=== PATIENT | male | born 1940 | race Caucasian/White ===

== ENCOUNTER 2024-06-11 05:39 | Emergency (ER) | payer MEDICARE, SELFPAY ==
--- NOTE | ~2024-06-11 | CT_ITS ---
EXAMINATION: CT cervical spine wo con DATE: 06/11/2024 06:14 INDICATION: Neck injury. Fall. TECHNIQUE: Computed tomography (CT) of the cervical spine was performed without intravenous contrast. Automated exposure control and iterative reconstruction technique were employed. The dose-length pro duct was 729.31 mGy-cm. COMPARISON: None FINDINGS: There is 2 mm retrolisthesis of C5 on C6. Vertebral body heights are normal. There is inter body fusion at C3-C4. There is mildly decreased disc height at C4-C5 and severely decreased disc heig ht at C5-C6 and C6-C7. The following disc levels are specifically discussed: C2-C3: There is mild right and severe left uncovertebral joint osteoarthritis. There is moderate righ t and severe left facet joint osteoarthritis. There is mild left neural foraminal stenosis. There is no central canal stenosis. C3-C4: There is mild right and severe left uncovertebral joint hypertrophy. There is ankylosis of the facet joints with mild right and severe left hypertrophy. There is mild right and moderate left neur al foraminal stenosis. There is mild central canal stenosis. C4-C5: There is moderate bilateral uncovertebral joint osteoarthritis. There is severe bilateral face t joint osteoarthritis. There is mild right and moderate left neural foraminal stenosis. There is mil d central canal stenosis. C5-C6: There is severe bilateral uncovertebral joint osteoarthritis. There is severe bilateral facet joint osteoarthritis. There is moderate bilateral neural foraminal stenosis. There is mild central ca nal stenosis. C6-C7: There is severe right and moderate left uncovertebral joint osteoarthritis. There is severe bi lateral facet joint osteoarthritis. There is mild bilateral neural foraminal stenosis. There is mild central canal stenosis. C7-T1: There is no uncovertebral joint osteoarthritis. There is severe bilateral facet joint osteoart hritis. There is mild bilateral neural foraminal stenosis. There is no central canal stenosis. IMPRESSION: 1. No fracture. 2. Severe cervical spondylosis. Reviewed, dictated and finalized at location A. AGRAPH OPERATOR
--- NOTE | ~2024-06-11 | CT_ITS ---
EXAMINATION: CT brain wo con DATE: 06/11/2024 06:13 INDICATION: Head injury. Fall. TECHNIQUE: Computed tomography (CT) of the head was performed without intravenous contrast. The mA wa s adjusted according to patient size. Iterative reconstruction technique was employed. The dose-lengt h product was 756.67 mGy-cm. COMPARISON: Head CT 06/10/2024 FINDINGS: There are scattered areas of low attenuation in the cerebral white matter, which is within normal limits for the patient's age. There is no intracranial hemorrhage, acute infarction, or abnorm al intracranial mass lesion. The ventricles are normal in size. There is mucosal thickening in the pa ranasal sinuses. The orbits are normal. The mastoid air cells are normal. IMPRESSION: 1. Normal aging brain. Reviewed, dictated and finalized at location A. RUCTIONAL COACH IMPRESSION: 1. Normal aging brain.
[2024-06-11 05:37] VITALS: BP 154/74; PULSE 77; RESP 14; TEMP 36.2; O2SAT 95
--- NOTE | 2024-06-11 05:53 | ED.GENADULT ---
HPI - General Adult General Chief complaint: Fall Stated complaint: fall Time Seen by Provider: 06/11/24 05:54 History of Present Illness HPI narrative: Patient is a 83-year-old gentleman who presents emergency department with chief complaint of possible fall the patient was found laying on the floor without complaints the staff is unsure if he has had a full or was injured or not the patient was seen earlier in our facility for increased agitation was screened at that time and did receive a dose of Ativan the patient currently has no complaints but is unreliable on history due to advanced dementia Related Data Allergies Allergy/AdvReac Type Severity Reaction Status Date / Time ciprofloxacin Allergy Unknown Unknown Verified 06/10/24 19:10 clindamycin Allergy Unknown Unknown Verified 06/10/24 19:10 levofloxacin Allergy Unknown Unknown Verified 06/10/24 19:10 Penicillins Allergy Unknown Unknown Verified 06/10/24 19:10 shellfish derived Allergy Unknown Unknown Verified 06/10/24 19:10 Review of Systems Review of Systems: A 10 system review of systems was completed on the patient and is negative except for what is stated in the HPI. Nursing and ancillary documentation was reviewed. Exam Narrative: GENERAL: Well-appearing, well-nourished, and in no acute distress. HEAD: Normocephalic, atraumatic. EYES: PERRLA and EOMI. ENT: Nares clear, no rhinorrhea or epistaxis. Mucous membranes moist. NECK: Supple. CHEST: Clear to auscultation. No respiratory distress. HEART: Regular rate and rhythm. No murmur heard. Normal peripheral pulses. ABDOMEN: Soft, nontender, nondistended, normal active bowel sounds. EXTREMITIES: Normal range of motion. No edema. SKIN: Warm, dry, no rash. NEURO: No focal deficits. Alert and pleasantly confused. PSYCH: Normal mood and affect. Course Vital Signs Vital signs: Vital Signs Temperature 36.2 C L 06/11/24 05:37 Pulse Rate 77 06/11/24 05:37 Respiratory Rate 14 06/11/24 05:37 Blood Pressure 154/74 H 06/11/24 05:37 Pulse Oximetry 95 06/11/24 05:37 Oxygen Delivery Room Air 06/11/24 05:37 Temperature 36.2 C L 06/11/24 05:37 Pulse Rate 77 06/11/24 05:37 Respiratory Rate 14 06/11/24 05:37 Blood Pressure 154/74 H 06/11/24 05:37 Pulse Oximetry 95 06/11/24 05:37 Oxygen Delivery Room Air 06/11/24 05:37 Medical Decision Making MDM Narrative Medical decision making narrative: Differential diagnosis includes ground level fall, head injury, cervical spine fracture Patient is currently alert to his baseline status the patient is not complaining of anything a CT head CT C-spine will be obtained CT head CT C-spine showed no acute abnormality Vital Signs Vital Signs: Vital Signs Temperature 36.2 C L 06/11/24 05:37 Pulse Rate 77 06/11/24 05:37 Respiratory Rate 14 06/11/24 05:37 Blood Pressure 154/74 H 06/11/24 05:37 Pulse Oximetry 95 06/11/24 05:37 Oxygen Delivery Room Air 06/11/24 05:37 Temperature 36.2 C L 06/11/24 05:37 Pulse Rate 77 06/11/24 05:37 Respiratory Rate 14 06/11/24 05:37 Blood Pressure 154/74 H 06/11/24 05:37 Pulse Oximetry 95 06/11/24 05:37 Oxygen Delivery Room Air 06/11/24 05:37 Discharge Plan Discharge Clinical Impression: Dementia, Ground-level fall Patient Disposition: NH Nursing Home/Asst Living Condition: Stable Instructions: Antibiotic Form, Dementia (ED), Fall Prevention (ED) Additional Instructions: There were no signs of injury from the fall. CT head and CT C-spine were negative Patient Language: [place] Follow-up/Referrals: Tracey,Emily Doan APRN [Primary Care Provider] - Time of Disposition: 06:42
[2024-06-11 07:18] VITALS: BP 136/69; PULSE 63; RESP 12; O2SAT 96
[2024-06-11 07:46] VITALS: BP 134/74; PULSE 74; RESP 12; TEMP 36.6; O2SAT 95
--- NOTE | 2024-06-11 08:45 | PC.NURSE ---
Attempted to call report to [facility], received no answer
--- NOTE | 2024-06-11 09:15 | PC.NURSE ---
Attempted to call report to [facility], received no answer
[2024-06-11 11:25] VITALS: BP 126/83; PULSE 72; RESP 15; O2SAT 98
--- NOTE | 2024-06-11 11:38 | PC.NURSE ---
RN attempted to get pt on bedpan. Pt refusing and attempting to get out of bed. RN attempted to redirect pt and educate pt unsuccessfully. Pt already on bed alarm and now has sitter at bedside
--- NOTE | 2024-06-11 12:43 | PC.NURSE ---
Report given to Rere AMES at [facility], all questions answered
== END 2024-06-11 14:22 ==
PROVIDERS: Emergency Provider Emergency Medicine; PCP Nurse Practitioner
DX: Z04.3 Encounter for examination and observation following other accident (principal); F03.90 Unspecified dementia, unspecified severity, without behavioral disturbance, psychotic disturbance, mood disturbance, and anxiety; M47.812 Spondylosis without myelopathy or radiculopathy, cervical region; W19.XXXA Unspecified fall, initial encounter
CPT/HCPCS: 70450; 72125; 99284

== ENCOUNTER 2024-07-22 15:26 | Emergency (ER) | payer MEDICARE, SELFPAY ==
--- NOTE | ~2024-07-22 | XR_ITS ---
EXAMINATION: XR chest 2V DATE: 07/22/2024 17:43 INDICATION: Fall. TECHNIQUE: Frontal and lateral views of the chest were obtained. COMPARISON: Chest 2 view 06/10/2024 FINDINGS: There is no pneumonia, pleural effusion, or pneumothorax. The heart size is normal. IMPRESSION: 1. No acute cardiopulmonary disease. Reviewed, dictated and finalized at location A. ING HEAD TENDER
--- NOTE | ~2024-07-22 | XR_ITS ---
EXAMINATION: XR pelvis 1-2V DATE: 07/22/2024 17:43 INDICATION: Fall. TECHNIQUE: An anteroposterior view of the pelvis was obtained. COMPARISON: None. FINDINGS: Alignment is normal. No fracture. There is mild osteoarthritis of the hips. There is at sev ere lumbar spondylosis. IMPRESSION: 1. Mild osteoarthritis of the hips. Reviewed, dictated and finalized at location A. GE WORKER
--- NOTE | ~2024-07-22 | CT_ITS ---
EXAMINATION: CT cervical spine wo con DATE: 07/22/2024 17:52 INDICATION: Head injury. TECHNIQUE: Computed tomography (CT) of the cervical spine was performed without intravenous contrast. Automated exposure control and iterative reconstruction technique were employed. The dose-length pro duct was 352.57 mGy-cm. COMPARISON: CT cervical spine 06/11/24 FINDINGS: There is 2 mm retrolisthesis of C5 on C6. Vertebral body heights are normal. There is inter body fusion at C3-C4. There is mildly decreased disc height at C4-C5 and severely decreased disc heig ht at C5-C6 and C6-C7. The following disc levels are specifically discussed: C2-C3: There is mild right and severe left uncovertebral joint osteoarthritis. There is moderate righ t and severe left facet joint osteoarthritis. There is mild left neural foraminal stenosis. There is no central canal stenosis. C3-C4: There is mild right and severe left uncovertebral joint hypertrophy. There is ankylosis of the facet joints with mild right and severe left hypertrophy. There is mild right and moderate left neur al foraminal stenosis. There is mild central canal stenosis. C4-C5: There is moderate bilateral uncovertebral joint osteoarthritis. There is severe bilateral face t joint osteoarthritis. There is mild right and moderate left neural foraminal stenosis. There is mil d central canal stenosis. C5-C6: There is severe bilateral uncovertebral joint osteoarthritis. There is severe bilateral facet joint osteoarthritis. There is moderate bilateral neural foraminal stenosis. There is mild central ca nal stenosis. C6-C7: There is severe right and moderate left uncovertebral joint osteoarthritis. There is severe bi lateral facet joint osteoarthritis. There is mild bilateral neural foraminal stenosis. There is mild central canal stenosis. C7-T1: There is no uncovertebral joint osteoarthritis. There is severe bilateral facet joint osteoart hritis. There is mild bilateral neural foraminal stenosis. There is no central canal stenosis. IMPRESSION: 1. No fracture. 2. Severe cervical spondylosis. Reviewed, dictated and finalized at location A. LIBRARY CLERK
--- NOTE | ~2024-07-22 | CT_ITS ---
EXAMINATION: CT brain wo con DATE: 07/22/2024 17:52 INDICATION: Head injury. TECHNIQUE: Computed tomography (CT) of the head was performed without intravenous contrast. The mA wa s adjusted according to patient size. Iterative reconstruction technique was employed. The dose-lengt h product was 681.00 mGy-cm. COMPARISON: Head CT 06/11/2024 FINDINGS: There are scattered areas of low attenuation in the cerebral white matter, which is within normal limits for the patient's age. There is no intracranial hemorrhage, acute infarction, or abnorm al intracranial mass lesion. The ventricles are normal in size. There is mild mucosal thickening in t he paranasal sinuses. The orbits are normal. The mastoid air cells are normal. IMPRESSION: 1. Normal aging brain. Reviewed, dictated and finalized at location A. LAY MANAGER IMPRESSION: 1. Normal aging brain.
[2024-07-22 15:30] VITALS: BP 135/64; PULSE 52; RESP 18; TEMP 36.4; O2SAT 96
--- OUTSIDE RECORDS SUMMARY | 2024-07-22 15:30 | XMS_ITS ---
Author Organization Corporate Office Address [address] [place] [address] [address] [place] [address] Care Team Providers Care Academic Physician Name Role Phone Ramesh Harper Primary Care Provider Anca Denson MD, [facility] [phone] REASON FOR VISIT 6 mo ear cleaning Encounters Encounter Location Date Provider Diagnosis [address] [facility] [address] [place] [address] 10/09/2023 Reuben Denson Plan Of Treatment No Information Progress Notes * Jose Armando DICKSONDOB: 2 (83 yo M)Acc No.[id number]:10/09/2023 Progress Notes Patient: Jose Armando FIGUEROA Provider: Taiwo Denson MD Case Label: Date Of Injury: :1940 A ge:82 Y S ex:Male Date:10/09/2023 Address:[address] [place], [place] [address] Pcp:Ramesh Harper Subjective: * Chief Complaints: * 1 . 6 mo ear cleaning. * Medical History: Objective: * Vitals: Assessment: Plan: * Treatment: * Care Plan Details* * Electronic signature of Reuben Denson MD, MD on 07/22/2024 at 04:30 PM EST Sign off status: Pending * Provider: Taiwo Denson MD Date: 0 10/09/2023 Generated for Claudia allen/Awilda/eTransmitting on: 0 07/22/2024 04:30 PM EST
--- OUTSIDE RECORDS SUMMARY | 2024-07-22 15:30 | XMS_ITS ---
Author Organization Corporate Office Address [address] [place] [address] [address] [place] [address] Care Team Providers Care Instrument And Control Technician Name Role Phone Ramesh Harper Primary Care Provider Anca Denson MD, [facility] [phone] REASON FOR VISIT check hearing and needs new hearing aids Encounters Encounter Location Date Provider Diagnosis 06 [facility] [address] [place] [address] 07/03/2023 Reuben Denson Plan Of Treatment No Information Progress Notes * Jose Armando DICKSONDOB: 2 (83 yo M)Acc No.[id number]:07/03/2023 Progress Notes Patient: Jose Armando FIGUEROA Provider: Taiwo Denson MD Case Label: Date Of Injury: :1940 A ge:82 Y S ex:Male Date:07/03/2023 Address:[address] [place], [place] [address] Pcp:Ramesh Harper Subjective: * Chief Complaints: * 1 . Check hearing and needs new hearing aids. * Medical History: Objective: * Vitals: Assessment: Plan: * Treatment: * Care Plan Details* * Electronic signature of Reuben Denson MD, MD on 07/22/2024 at 04:30 PM EST Sign off status: Pending * Provider: Taiwo Denson MD Date: 07/03/2023 Generated for Jelanii ng/Faerong/eTransmitting on: 07/22/2024 04:30 PM EST
--- OUTSIDE RECORDS SUMMARY | 2024-07-22 15:30 | XMS_ITS ---
Author Organization Corporate Office Address [address] [place] [address] [address] [place] [address] Care Team Providers Care Fixed Route Operator Name Role Phone Ramesh Harper Primary Care Provider Anca Denson MD, [facility] [phone] REASON FOR VISIT FYI Encounters Encounter Location Date Provider Diagnosis [facility] [address] [place] [address] 024 Reuben Denson Plan Of Treatment No Information Progress Notes * Jose Armando DICKSONDOB: 2 (82 yo M)Acc No.[id number]:08/26/2023 Patient: Jose Armando FIGUEROA :1940 A ge:82 Y S ex:Male Address:[address] [place] [address], [address] * true * Date: Generated for Printi ng/Faxing/eTransmitting on: 0 07/22/2024 04:30 PM EST
--- OUTSIDE RECORDS SUMMARY | 2024-07-22 15:30 | XMS_ITS | Patient Health Record ---
Author Organization Corporate Office Address [address] [place] [address] [address] [place] [address] Care Team Providers Care Industrial Controls Technician Name Role Phone Ramesh Harper Primary Care Provider Anca Denson MD, [place] Unavailable [phone] Allergies Allergen (clinical drug ingredient) Drug/Non Drug Allergy documented on EMR Reaction Allergy Type Onset Date Status clindamycin Clindamycin HCl rash Drug Allergy Active Shellfish (FN) Shellfish-derived Products hives Drug Allergy Active Reason For Referral No Information Medications Medication SIG (Take, Route, Frequency, Duration) Notes Start Date End Date Status [place] 3 1000 MG 1 capsule Orally Onc e a day Active Multivitamin Adult - Orally Active Simvastatin 20 MG 1 tablet in the even ing Orally Once a day Active PreserVision AREDS - Orally Active Vitamin D3 15670 UNIT Orally Active Fish Oil 1000 MG 1 capsule Orally Onc e a day Active amLODIPine Besylate 10 MG 1 tablet Orall y Once a day Active Levothyroxine Sodium 50 MCG 1 tablet on an empty stomach in the morning Orally Once a day Active Fluticasone Propionate 50 MCG/ACT 1 spray in each nostril Nasally Once a day for 90 days Active Losartan Potassium 100 MG 1 tablet Orall y Once a day Active Social History Tobacco Use: Social History Observation Description Date Details (start date - stop date) Never Smoker NA - NA Smoking Question Answer Notes Are you a: Never Smoker Problems Problem Type SNOMED Code ICD Code Onset Dates Problem Status W/U Status Risk Notes Problem 04903003 Impacted cerumen of right ear (H61.21) Active confirmed Problem 9638124960722 Tinnitus of both ears (H93.13) Active confirmed Problem 9198650053130 Tinnitus, bilateral (H93.13) Active confirmed Problem 294554979 Cerumen debris o n tympanic membrane of both ears (H61.23) Active confirmed Problem 217392778 Cerumen debris o n tympanic membrane of right ear (H61.21) Active confirmed Problem 818108737 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) Active confirmed Encounters Encounter Location Date Provider Diagnosis [facility] [address] [place] [address] 024 eRuben Denson Plan Of Treatment No Information Insurance Providers Payer Name Payer Address Payer Phone Subscriber Number Group Number Insured Name Patient Relationship to Insured Coverage Start Date Coverage End Date [employer] MEDICARE PPO [address] [place] [address] [id number] [id number] Jose Armando Casillas Self - patient is the insured Medical (General) History Medical History History ICD Code Hypertension Thyroid disease Sensorineural hearing loss (SNHL) of bot h ears Tinnitus Surgical History Surgery Date(Month/Year) back surgery - spinal stenosis
--- OUTSIDE RECORDS SUMMARY | 2024-07-22 15:30 | XMS_ITS | Patient Health Record ---
Author Organization [facility] Vince crowe Billing Info Address [address] [place] [address] Care Team Providers Care Grinder Tender Name Role Phone YOMAIRA Echavarria Unavailable [phone] Allergies Allergen (clinical drug ingredient) Drug/Non Drug Allergy documented on EMR Reaction Allergy Type Onset Date Status Phenylbutazone Unknown Drug Allergy Ac tive Penicillin Unknown Drug Allergy Active Reason For Referral No Information Medications Medication SIG (Take, Route, Frequency, Duration) Notes Start Date End Date Status Aspirin 81 MG 1 tablet Orally Once a day for 30 day(s) Active Simvastatin 40 MG 1/2 tablet in the evening Orally Once a day for 30 day(s) Active Nitroglycerin Sublingual 0.4 mg 1 under tongue for chest pain every 5 minutes up to 3 times 08/26/2012 Active Losartan Potassium 50 MG 1/2 tablet Oral ly Once a day for 90 days Active CoQ10 Active Levothyroxine Sodium 100 MCG 1 tablet on an empty stomach in the morning Orally Once a day for 90 day(s) 08/26/2012 Active Fish Oil 1000 MG 1 capsule Orally Onc e a day for 30 day(s) Active PreserVision AREDS as directed Orally Active Problems Problem Type SNOMED Code ICD Code Onset Dates Problem Status W/U Status Risk Notes Problem 54004858 Unspecified hypothyroidism (244.9) Active confirmed Migra odette-Pro blemList-[facility]07/28/19 13 Problem 719936211 Pure hypercholesterolemia (272.0) Active confirmed Migrated-Pro blemList-344 [facility]07/28/19 13 Problem 80771953 Other and unspec ified hyperlipidemia (272.4) Active confirmed Migra odette-Pro blemList-344 [facility]07/28/19 13 Problem 55028830 Unspecified esse ntial hypertension (401.9) Active confirmed Migrate d-Pro blemList-344 [facility]07/28/19 13 Problem 768117949 Encounter for long-term (current) use of other medications (V58.69) Active confirmed Migrate d-Pro blemList-344 [facility]07/28/19 13 Plan Of Treatment No Information Insurance Providers Payer Name Payer Address Payer Phone Subscriber Number Group Number Insured Name Patient Relationship to Insured Coverage Start Date Coverage End Date [place]ARE [place] PART B [address] [facility] [place], [place] [id number] [phone] [id number] Sonja Jose Armando Self - patient is the insured 7 0 [facility] CHOICE PLUS HSA [address] [place], [place] [phone] [id number] Jose Armando Casillas Self - patient is the insured 3 3 Medical (General) History Medical History History ICD Code high cholesterol hypertension Surgical History Surgery Date(Month/Year) hernia repair 1985 colonoscopy 2004
--- OUTSIDE RECORDS SUMMARY | 2024-07-22 15:30 | XMS_ITS | Clinical Summary ---
Author Organization [facility] Address [address] [place] [address] Care Team Providers Care Executive Office Manager Name Role Phone Emily Webb NP Primary Care Pro vider Medications No known medications Active Problems No known active problems Social History Tobacco Use Types Packs/Day Years Used Date Smoking Tobacco: Never Assessed Personal Safety Answer Date Recorded Getting School Help Needed Not on file 11/17 Sex and Gender Information Value Date Recorded Sex Assigned at Not on file Legal Sex Male 1:33 PM CDT Gender Identity Not on file Sexual Orientation Not on file Plan of Treatment Not on file Insurance [place] [id number] Care Teams Executive Office Manager Relationship Specialty Start Date End Date Emily Webb NP [address] [place] [address] PCP - General Nurse Practitioner 11/18/23
--- OUTSIDE RECORDS SUMMARY | 2024-07-22 15:30 | XMS_ITS | Referral Summary ---
Author Organization [facility] Address [address] [place] [address] Care Team Providers Care Application Processor Name Role Phone Emily Webb NP Primary [...] file Insurance [place] [id number] Care Teams Application Processor Relationship Specialty Start Date End Date Emily Webb NP [address] [place] [address] PCP - General Nurse Practitioner 11/18/23
--- NOTE | 2024-07-22 16:14 | ECG_ITS ---
Test Date: 2024-07-22 16:19:41 Measurements Intervals [place] Rate: 82 P: 0 WV: 0 QRS: -52 QRSD: 154 T: 108 QT: 429 QTc: 501 Interpretive Statements SINUS RHYTHM WITH FIRST DEGREE AV BLOCK LEFT AXIS DEVIATION LEFT BUNDLE BRANCH BLOCK BASELINE ARTIFACT- I, II, III, AVR, AVL, V3 ABNORMAL ECG Compared to ECG 06/10/2024 19:26:01 NO SIGNIFICANT CHANGE Electronically Signed On 07-22-2024 16:59:17 HUMAN RESOURCES SUPERVISOR by Diego Ba D.O.
--- NOTE | 2024-07-22 16:27 | ED_ITS ---
HPI - Fall General Chief Complaint: Fall <Gianna Lange PA-C - Last Filed: 07/23/24 18:08> Stated Complaint: fall - slid from wc, no complaints <Gianna Lange PA-C - Last Filed: 07/23/24 18:08> Time Seen by Provider: 07/22/24 16:28 <Gianna Lange PA-C - Last Filed: 07/23/24 18:08> Focused HPI: This is an 83-year-old male that presents to the emergency department after an unwitnessed fall. Reportedly patient was found on the ground next to his bed. He does not have any focal complaints. Alert and yulissa ented at his baseline. GENERAL: Elderly, well-nourished, and in no acute distress. HEAD: Normocephalic, atraumatic. CHEST: Clear to auscultation. ?No respiratory distress. HEART: Irregularly irregular? NEURO: ?Alert and oriented x1. Patient screened in triage and initial orders placed.? ?Additional care and disposition to be based upon?diagnostic testing and treatment. <Gianna Lange PA-C - Last Filed: 07/23/24 18:08> Related Data Allergies/Adverse Reactions: Allergies Allergy/AdvReac Type Severity Reaction Status Date / Time ciprofloxacin Allergy Unknown Unknown Verified 06/10/24 19:10 clindamycin Allergy Unknown Unknown Verified 06/10/24 19:10 levofloxacin Allergy Unknown Unknown Verified 06/10/24 19:10 Penicillins Allergy Unknown Unknown Verified 06/10/24 19:10 shellfish derived Allergy Unknown Unknown Verified 06/10/24 19:10 <Gianna Lange PA-C - Last Filed: 07/23/24 18:08> Review of Systems Review of Systems: All systems reviewed & are unremarkable except as noted in HPI and below <Shereen Swain APRN - Last Filed: 07/22/24 20:56> PMFSH Past Medical History Medical History: Medical History (Updated 07/23/24 @ 18:08 by Gianna Lange PA-C) History of hypothyroidism History of hyperlipidemia History of hypertension <Gianna Lange PA-C - Last Filed: 07/23/24 18:08> Exam Narrative: GENERAL: Well appearing, well-nourished, non-toxic, in no acute distress. HEAD: Normocephalic, atraumatic. NECK: Supple. No adenopathy, no masses. RESPIRATORY: Airway patent, respirations nonlabored. Clear to auscultation bilaterally, no rales, rhonchi, wheezing. CARDIOVASCULAR: Regular rate and rhythm without murmurs, rubs, or gallops. Peripheral pulses 2+ and equal bilaterally. ABDOMINAL: Soft, nontender, nondistended, no hepatosplenomegaly. Normoactive BS. MUSCULOSKELETAL: Moves all extremities. Strength/ROM intact without gross deformities. SKIN: Warm, dry, normal color. No rashes. NEURO: A&O X3. Speech clear. Cranial nerves II-XII grossly intact. Steady gait. No ataxic movements. PSYCHIATRIC: Appropriate mood and affect. Normal interaction. <Shereen Swain APRN - Last Filed: 07/22/24 20:56> Course Vital Signs Vital signs: Vital Signs Temperature 97.6 F 07/22/24 15:30 Pulse Rate 52 L 07/22/24 15:30 Respiratory Rate 18 07/22/24 15:30 Blood Pressure 135/64 07/22/24 15:30 Pulse Oximetry 96 07/22/24 15:30 Oxygen Delivery Room Air 07/22/24 15:30 Temperature 97.3 F L 07/22/24 20:34 Pulse Rate 87 07/22/24 23:25 Respiratory Rate 17 07/22/24 23:25 Blood Pressure 143/79 H 07/22/24 23:25 Pulse Oximetry 96 07/22/24 23:25 Oxygen Delivery Room Air 07/22/24 15:30 <Gianna Lange PA-C - Last Filed: 07/23/24 18:08> Vital Signs Temperature 97.6 F 07/22/24 15:30 Pulse Rate 52 L 07/22/24 15:30 Respiratory Rate 18 07/22/24 15:30 Blood Pressure 135/64 07/22/24 15:30 Pulse Oximetry 96 07/22/24 15:30 Oxygen Delivery Room Air 07/22/24 15:30 Temperature 97.3 F L 07/22/24 20:34 Pulse Rate 87 07/22/24 23:25 Respiratory Rate 17 07/22/24 23:25 Blood Pressure 143/79 H 07/22/24 23:25 Pulse Oximetry 96 07/22/24 23:25 Oxygen Delivery Room Air 07/22/24 15:30 <Shereen Swain APRN - Last Filed: 07/22/24 20:56> MDM - Fall MDM Narrative Medical decision making narrative: This is an 83-year-old male that presents to the emergency department after an unwitnessed fall. Reportedly patient was found on the ground next to his bed. He does not have any focal complaints. Alert and oriented at his baseline. Labs Ordered: None necessary Imaging Ordered: Chest x-ray, CT cervical spine, CT brain, pelvis x-ray, EKG Medications Ordered: None necessary Results: Patient's imaging showed no acute abnormalities. Patient's cervical spine indicates Severe cervical spondylosis. Patient's EKG indicates SINUS RHYTHM WITH FIRST DEGREE AV BLOCK LEFT AXIS DEVIATION LEFT BUNDLE BRANCH BLOCK BASELINE ARTIFact. This is consistent with previous EKGs. Diagnosis: Fall with no acute injury Patient Education/Shared MDM: Results shared with patient's daughter. He has dementia and is A & O x 1 at baseline. Pt denies any pain with palpation. His daughter was strongly advised to follow-up with his PCP in the next 2-3 days. He will be discharged home with no new prescriptions. Strict return precautions provided. Patient's daughter verbalized understanding and is in agreement with plan. Vital signs stable at time of discharge. All questions answered. <Shereen Swain APRN - Last Filed: 07/22/24 20:56> Differential Diagnosis Differential diagnosis: Likely compression fracture and concussion without loss of consciousness < Shereen Swain APRN - Last Filed: 07/22/24 20:56> Imaging Data Attestation: I personally reviewed and interpreted this imaging study as follows: <Shereen Swain APRN - Last Filed: 07/22/24 20:56> Radiologist's impression: Impressions Chest X-Ray 07/22/24 17:44 IMPRESSION: 1. No acute cardiopulmonary disease. Pelvis X-Ray 07/22/24 17:44 IMPRESSION: 1. Mild osteoarthritis of the hips. Head CT 07/22/24 17:53 IMPRESSION: 1. Normal aging brain. Cervical Spine CT 07/22/24 17:55 IMPRESSION: 1. No fracture. 2. Severe cervical spondylosis. <Shereen Swain APRN - Last Filed: 07/22/24 20:56> Critical Care Time Critical Care Time Critical Care Time: No <Gianna Lange PA-C - Last Filed: 07/23/24 18:08> Discharge Plan Discharge Clinical Impression: Ground-level fall Fall with no significant injury Qualifiers: Encounter type: initial encounter Qualified Code(s): W19.XXXA - Unspecified fall, initial encounter <Gianna Lange PA-C - Last Filed: 07/23/24 18:08> Patient Disposition: [facility] <Gianna Lange PA-C - Last Filed: 07/23/24 18:08> Condition: Stable <Gianna Lange PA-C - Last Filed: 07/23/24 18:08> Instructions: Antibiotic Form, Fall Prevention for Older Adults (ED) <Gianna Lange PA-C - Last Filed: 07/23/24 18:08> Additional Instructions: Please return to the ER with an worsening symptoms. Follow-up with primary care provider in the next 2-3 days. Take all regularly scheduled medications as prescribed. <Gianna Lange PA-C - Last Filed: 07/23/24 18:08> Patient Language: Turkish <Gianna Lange PA-C - Last Filed: 07/23/24 18:08> Follow-up/Referrals: Tracey,Emily Doan APRN [Primary Care Provider] - <Gianna Lange PA-C - Last Filed: 07/23/24 18:08> Stand Alone Forms: Intermediate Discharge <Gianna Lange PA-C - Last Filed: 07/23/24 18:08> Time of Disposition: 20:39 <Gianna Lange PA-C - Last Filed: 07/23/24 18:08> 20:39 <Shereen Swain APRN - Last Filed: 07/22/24 20:56>
[2024-07-22 20:34] VITALS: BP 119/65; PULSE 87; RESP 16; TEMP 36.3; O2SAT 98
--- NOTE | 2024-07-22 21:03 | PC.NURSE ---
No obvious injuries noted.
--- OUTSIDE RECORDS SUMMARY | 2024-07-22 21:07 | XMS_ITS | Clinical Summary ---
Author Organization [facility] Address [address] [place] [address] Care Team Providers Care Healthcare Interpreter Name Role Phone Emily Webb NP Primary [...] file Insurance BCBS [place] [id number] Care Teams Healthcare Interpreter Relationship Specialty Start Date End Date Emily Webb NP [address] [place] [address] PCP - General Nurse Practitioner 11/18/23
--- OUTSIDE RECORDS SUMMARY | 2024-07-22 21:07 | XMS_ITS | Referral Summary ---
Author Organization [facility] Address [address] [place] [address] Care Team Providers Care Laundry Folder Name Role Phone Emily Webb NP Primary [...] file Insurance [place] [id number] Care Teams Laundry Folder Relationship Specialty Start Date End Date Emily Webb NP [address] [place] [address] PCP - General Nurse Practitioner 11/18/23
[2024-07-22 23:25] VITALS: BP 143/79; PULSE 87; RESP 17; O2SAT 96
== END 2024-07-22 23:26 ==
PROVIDERS: Emergency Provider Registered Nurse; PCP Nurse Practitioner
DX: Z04.3 Encounter for examination and observation following other accident (principal); I10 Essential (primary) hypertension; E03.9 Hypothyroidism, unspecified; E78.5 Hyperlipidemia, unspecified; M47.812 Spondylosis without myelopathy or radiculopathy, cervical region; M16.0 Bilateral primary osteoarthritis of hip; I44.0 Atrioventricular block, first degree; I44.7 Left bundle-branch block, unspecified; W19.XXXA Unspecified fall, initial encounter
CPT/HCPCS: 70450; 71046; 72125; 72170; 93005; 99284

== ENCOUNTER 2024-07-27 15:56 | Emergency (ER) | payer MEDICARE, SELFPAY ==
[2024-07-27 16:02] VITALS: BP 115/69; PULSE 75; RESP 18; TEMP 36.3; O2SAT 100
--- NOTE | 2024-07-27 16:05 | ECG_ITS ---
Test Date: 2024-07-27 16:08:40 Measurements Intervals [place] Rate: 72 P: 75 OR: 225 QRS: -53 QRSD: 152 T: 75 QT: 437 QTc: 481 Interpretive Statements SINUS RHYTHM WITH FIRST DEGREE AV BLOCK WITH OCCASIONAL SUPRAVENTRICULAR PREMATURE COMPLEXES LEFT AXIS DEVIATION LEFT BUNDLE BRANCH BLOCK BASELINE ARTIFACT- I, II, III, AVR, AVL, AVF, V1-V6 ABNORMAL ECG Compared to ECG 07/22/2024 16:19:41 No significant changes Electronically Signed On 07-27-2024 16:37:05 EQUIPMENT SUPERINTENDENT by Diego Ba D.O.
--- NOTE | 2024-07-27 16:54 | PC.NURSE ---
HUI Barajas from [facility] called. RN updated that pt. is still in the WR. Jenn states that pt. is supposed to be a direct admit to [facility] for behavioral. Jenn was wondering if once pt. is medically cleared if he could go to [facility] for behavioral issues. . RN at [facility] advised to call back multiple times to let staff at [facility] know since pt. is still in the WR.
--- OUTSIDE RECORDS SUMMARY | 2024-07-27 18:23 | XMS_ITS | Patient Health Record ---
Author Organization Corporate Office Address [address] [place] [address] [address] [place] [address] Care Team Providers Care Patient Carrier Name Role Phone Ramesh Harper Primary Care Provider Anca Denson MD, [place] Unavailable [phone] Allergies Allergen (clinical drug ingredient) Drug/Non Drug Allergy documented on EMR Reaction Allergy Type Onset Date Status clindamycin Clindamycin HCl rash Drug Allergy Active Shellfish (FN) Shellfish-derived Products hives Drug Allergy Active Reason For Referral No Information Medications Medication SIG (Take, Route, Frequency, Duration) Notes Start Date End Date Status Kiron 3 1000 MG 1 capsule Orally Onc e a day Active Multivitamin Adult - Orally Active Simvastatin 20 MG 1 tablet in the even ing Orally Once a day Active PreserVision AREDS - Orally Active Vitamin D3 74822 UNIT Orally Active Fish Oil 1000 MG [...] Problem Status W/U Status Risk Notes Problem 77080115 Impacted cerumen of right ear (H61.21) Active confirmed Problem 6929315660913 Tinnitus of both ears (H93.13) Active confirmed Problem 5168211326271 Tinnitus, bilateral (H93.13) Active confirmed Problem 442950055 Cerumen debris o n tympanic membrane of both ears (H61.23) Active confirmed Problem 326107694 Cerumen debris o n tympanic membrane of right ear (H61.21) Active confirmed Problem 951793695 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 [id number] Arm[facility] Cas[facility] Self - patient is the insured Medical (General) History Medical History History ICD Code Hypertension Thyroid disease Sensorineural hearing loss (SNHL) of bot h ears Tinnitus Surgical History Surgery Date(Month/Year) back surgery - spinal stenosis
--- OUTSIDE RECORDS SUMMARY | 2024-07-27 18:23 | XMS_ITS ---
Author Organization Corporate Office Address [address] [place] [address] [address] [place] [address] Care Team Providers Care Fitness Floor Attendant Name Role Phone Ramesh Harper Primary Care Provider Anca Denson MD, [facility] [phone] REASON FOR VISIT 6 mo ear cleaning Encounters Encounter Location Date Provider Diagnosis [address] [facility] [address] [place] [address] 10/09/2023 Reuben Denson Plan Of Treatment No Information Progress Notes * Jose Armando DICKSONDOB: 2 (83 yo M)Acc No.[id number]:10/09/2023 Progress Notes Patient: Jose Armando FIGUEROA Provider: Taiwo Denson MD Case Label: Date Of Injury: :1940 A ge:82 Y S ex:Male Date:10/09/2023 Address:[address] [place], [place] [id number] Pcp:Ramesh Harper Subjective: * Chief Complaints: * 1 . 6 mo ear cleaning. * Medical History: Objective: * Vitals: Assessment: Plan: * Treatment: * Care Plan Details* * Electronic signature of Reuben Denson MD, MD on 07/27/2024 at 07:23 PM EST Sign off status: Pending * Provider: Taiwo Denson MD Date: 0 10/09/2023 Generated for Claudia allen/Awilda/eTfloriansmitting on: 0 07/27/2024 07:23 PM EST
--- OUTSIDE RECORDS SUMMARY | 2024-07-27 18:23 | XMS_ITS | Clinical Summary ---
Author Organization [facility] Address [address] [place] [address] Care Team Providers Care Optical Glass Inspector Name Role Phone Emily Webb NP Primary [...] file Insurance [place] [id number] Care Teams Optical Glass Inspector Relationship Specialty Start Date End Date Emily Webb NP [address] [place] [address] PCP - General Nurse Practitioner 11/18/23
--- OUTSIDE RECORDS SUMMARY | 2024-07-27 18:23 | XMS_ITS | CONTINUITY OF CARE DOCUMENT ---
Author Name codey alegre Address Unknown Organization [facility] Address [address] [facility] [address] [place] [address] Phone [phone] Care Team Providers Care Studio Director Name Role Phone Alo GARCIA, Amrit Unavailable [phone] Amrit Prajapati MD Unavailable [phone] INSURANCE PROVIDERS Payer name Policy type / Coverage type Ebony red libertarian ID UHC GRP MEDICARE ADVANTAGE PLAN (PPO) Medicare [id number]
--- OUTSIDE RECORDS SUMMARY | 2024-07-27 18:23 | XMS_ITS | Referral Summary ---
Author Organization [facility] Address [address] [place] [address] Care Team Providers Care Customer Support Representative Name Role Phone Emily Webb NP Primary [...] file Insurance [place] [id number] Care Teams Customer Support Representative Relationship Specialty Start Date End Date Emily Webb NP [address] [place] [address] PCP - General Nurse Practitioner 11/18/23
--- OUTSIDE RECORDS SUMMARY | 2024-07-27 18:24 | XMS_ITS ---
Author Organization Corporate Office Address [address] [place] [address] [address] [place] [address] Care Team Providers Care Administration Vice President Name Role Phone Ramesh Harper Primary Care Provider Anca Denson MD, [facility] [phone] REASON FOR VISIT FYI Encounters Encounter Location Date Provider Diagnosis [facility] [address] [place] [address] 024 Reuben Denson Plan Of Treatment No Information Progress Notes * Jose Armando DICKSONDOB: 2 (82 yo M)Acc No.[id number]:08/26/2023 Patient: Jose Armando FIGUEROA :1940 A ge:82 Y S ex:Male Address:[address] [place] [address], [address] * true * Date: Generated for Printi ng/Faxing/eTransmitting on: 0 07/27/2024 07:23 PM EST
--- OUTSIDE RECORDS SUMMARY | 2024-07-27 18:24 | XMS_ITS ---
Author Organization Corporate Office Address [address] [place] [address] [address] [place] [address] Care Team Providers Care Director Global Intelligence Name Role Phone Ramesh Harper Primary Care Provider Anca Denson MD, [facility] [phone] REASON FOR VISIT check hearing and needs new hearing aids Encounters Encounter Location Date Provider Diagnosis [address] [facility] [address] [place] [address] 07/03/2023 Reuben Denson Plan Of Treatment No Information Progress Notes * Jose Armando DICKSONDOB: 2 (83 yo M)Acc No.[id number]:07/03/2023 Progress Notes Patient: Jose Armando FIGUEROA Provider: Taiwo Denson MD Case Label: Date Of Injury: :1940 A ge:82 Y S ex:Male Date:07/03/2023 Address:[address] [place], [place] [id number] Pcp:Ramesh Harper Subjective: * Chief Complaints: * 1 . Check hearing and needs new hearing aids. * Medical History: Objective: * Vitals: Assessment: Plan: * Treatment: * Care Plan Details* * Electronic signature of Reuben Denson MD, MD on 07/27/2024 at 07:23 PM EST Sign off status: Pending * Provider: Taiwo Denson MD Date: 07/03/2023 Generated for Claudia ng/Faerong/eTransmitting on: 0 07/27/2024 07:23 PM EST
--- NOTE | 2024-07-27 18:44 | PC.NURSE ---
Pt. taken to restroom by HUI Soriano. Pt. calm in WR at this time. Daughter with pt.
[2024-07-27 18:47] VITALS: BP 117/72; PULSE 70; RESP 16; O2SAT 97
[2024-07-27 19:07] LABS: Add Urine Microscopic? YES; Appearance Urine Clear (Clear); Bacteria Urine None Seen /hpf; Bilirubin Urine Negative (Negative); Blood Urine Negative (Negative); Color Urine Yellow (Yellow); Glucose Urine UA Negative (Negative); Ketones Urine Negative (Negative); Leukocyte Esterase Ur Negative LEU/UL (Negative); Nitrate Urine Negative (Negative); Non Pathogenic Casts 0-2; Protein Urine Trace mg/dL (Negative); RBC Urine 0-2 /hpf (0-2); Specific Grav Ur 1.021 (1.001-1.035); Squamous Epithelial Cell Urine None Seen /hpf (Few); Urobilinogen Urine 0.2 mg/dL (<2.0); WBC Urine 0-5 /hpf (0-3); pH Urine 5.5 (5.0-9.0)
--- NOTE | 2024-07-27 20:31 | ED_ITS ---
HPI - Psych General Chief Complaint: Psychiatric Symptoms <Shereen Swain APRN - Last Filed: 07/28/24 03:39> Stated Complaint: GLF, R. leg pain, -LOC, -hit head, -thinners <Shereen Swain APRN - Last Filed: 07/28/24 03:39> Time Seen by Provider: 07/27/24 20:25 <Shereen Swain APRN - Last Filed: 07/28/24 03:39> History of Present Illness HPI Narrative: Patient is an 83-year-old male who presents to the ER after [facility]. He is well known to this healthcare provider, as he has been in the ER recently for multiple falls. Patient with x1 at baseline and is frequently agitated. His daughter explains that there are plans for him to be admitted to [facility] for his decreased mental capabilities. Patient has already been accepted there, but they do not have a bed ready for him until tomorrow. He denies pain at time of examination. Patient's daughter reports there have been recent antipsychotic medications added to his regime at the SNF. The fall at the [place] today was witnessed and patient did not hit his head. His daughter reports a history of dementia, Hypertension, hyperlipidemia, hypothyroidism. <Shereen Swain APRN - Last Filed: 07/28/24 03:39> Related Data Allergies/Adverse Reactions: Allergies Allergy/AdvReac Type Severity Reaction Status Date / Time ciprofloxacin Allergy Unknown Unknown Verified 07/27/24 15:59 clindamycin Allergy Unknown Unknown Verified 07/27/24 15:59 levofloxacin Allergy Unknown Unknown Verified 07/27/24 15:59 Penicillins Allergy Unknown Unknown Verified 07/27/24 15:59 shellfish derived Allergy Unknown Unknown Verified 07/27/24 15:59 <Shereen Swain APRN - Last Filed: 07/28/24 03:39> Review of Systems 2 Review of Systems: All systems reviewed & are unremarkable except as noted in HPI and below <Shereen Swain APRN - Last Filed: 07/28/24 03:39> PMFSH Past Medical History Medical History: Medical History History of hypothyroidism History of hyperlipidemia History of hypertension <Shereen Swain APRN - Last Filed: 07/28/24 03:39> Exam 2 Narrative: GENERAL: Well appearing, well-nourished, non-toxic, in no acute distress. HEAD: Normocephalic, atraumatic. NECK: Supple. No adenopathy, no masses. RESPIRATORY: Airway patent, respirations nonlabored. Clear to auscultation bilaterally, no rales, rhonchi, wheezing. CARDIOVASCULAR: Regular rate and rhythm without murmurs, rubs, or gallops. Peripheral pulses 2+ and equal bilaterally. ABDOMINAL: Soft, nontender, nondistended, no hepatosplenomegaly. Normoactive BS. MUSCULOSKELETAL: Moves all extremities. Strength/ROM intact without gross deformities. SKIN: Warm, dry, normal color. No rashes. NEURO: A&O X1 (baseline). Speech clear. Unsteady gait. No ataxic movements. PSYCHIATRIC: inappropriate mood, agitated <Shereen Swain APRN - Last Filed: 07/28/24 03:39> Course BIOFUELS PRODUCTION TECHNICIAN/PA Physician Supervision For this patient encounter, I reviewed the BIOFUELS PRODUCTION TECHNICIAN or PA documentation, treatment plan, and medical decision making; and I had [id number] time with this patient. Patient was accepted to [facility] and transportation is eminent at 7:45a.m.. < Rosalio Riggins MD - Last Filed: 07/28/24 06:50> Vital Signs Vital signs: Vital Signs Temperature 97.3 F L 07/27/24 16:02 Pulse Rate 75 07/27/24 16:02 Respiratory Rate 18 07/27/24 16:02 Blood Pressure 115/69 07/27/24 16:02 Pulse Oximetry 100 07/27/24 16:02 Temperature 97.3 F L 07/27/24 16:02 Pulse Rate 70 07/28/24 00:00 Respiratory Rate 18 07/28/24 00:00 Blood Pressure 132/76 07/28/24 00:00 Pulse Oximetry 100 07/28/24 00:00 <Shereen Swain APRN - Last Filed: 07/28/24 03:39> Vital Signs Temperature 97.3 F L 07/27/24 16:02 Pulse Rate 75 07/27/24 16:02 Respiratory Rate 18 07/27/24 16:02 Blood Pressure 115/69 07/27/24 16:02 Pulse Oximetry 100 07/27/24 16:02 Temperature 97.3 F L 07/27/24 16:02 Pulse Rate 70 07/28/24 00:00 Respiratory Rate 18 07/28/24 00:00 Blood Pressure 132/76 07/28/24 00:00 Pulse Oximetry 100 07/28/24 00:00 <Rosalio Riggins MD - Last Filed: 07/28/24 06:50> MDM - Psych MDM Narrative Medical decision making narrative: Patient is an 83-year-old male who presents to the ER after [facility] a [facility]. He is well known to this healthcare provider, as he has been in the ER recently for multiple falls. Patient with x1 at baseline and is frequently agitated. His daughter explains that there are plans for him to be admitted to [facility] for his decreased mental capabilities. Patient has already been accepted there, but they do not have a bed ready for him until tomorrow. He denies pain at time of examination. Patient's daughter reports there have been recent antipsychotic medications added to his regime at the SNF. The fall [facility] the [place] was witnessed and patient did not hit his head. His daughter reports a history of dementia, Hypertension, hyperlipidemia, hypothyroidism. Labs Ordered: CBC, CMP, ethanol, TSH UA, UDS, COVID/flu/RSV swab Imaging Ordered: None necessary Medications Ordered: Pt refused Seroquel PO, Zyprexa 5mg IM x 2 Results: Bloodwork results consistent with previous recent bloodwork results. TSH is elevated, but indicates mildly underactive (subclinical) hypothyroidism. Risks: Abdi-Wartofsky Point Scale (BWPS) for Thyrotoxicosis from [email or web address] on 07/28/2024 All calculations should be rechecked by clinician prior to use RESULT SUMMARY: 10 points Unlikely to represent thyroid storm INPUTS: Temperature ?F (?C) ?> 0 = <99 Central nervous system effects ?> 10 = Mild (agitation) Gastrointestinal-hepatic dysfunction ?> 0 = Absent Heart Rate (beats/minute) ?> 0 = <90 Congestive Heart Failure ?> 0 = Absent Atrial fibrillation present ?> 0 = No Precipitating event ?> 0 = No Diagnosis: ground level fall with no injuries, chronic altered mental status Patient Education/Shared MDM: 2250- Pt woke up and became agitated. He started trying to crawl out of bed and taking his clothes off. Will give another dose of Zyprexa 5mg IM. Pt is medically cleared to be transferred to [facility]. 2400- Pt continues to be agitated and restless. Will order Ativan 1mg IM. 0100- Security at bedside to help re-orient pt and keep him from ambulating (as he is high risk for falls). 0300-Pt continues to remain awake and is still mildly agitated, but he is remaining in his bed. Pt removing his clothes, incontinent, and pulling off his Depends. 0330- Anticipated time of EMS arrival for transfer is now. Report given to Dr. Rosalio Riggins. <Shereen Swain APRN - Last Filed: 07/28/24 03:39> Differential Diagnosis Differential diagnosis: Likely acute psychosis, depression, drug-induced psychotic disorder and acute anxiety <Shereen Swain APRN - Last Filed: 07/28/24 03:39> Lab Data Attestation: I reviewed the patient's lab results. <Shereen Swain APRN - Last Filed: 07/28/24 03:39> Result diagrams: 07/27/24 20:39 07/27/24 20:39 <Shereen Swain FULLER BRUSH MAN - Last Filed: 07/28/24 03:39> Labs: Lab Results 07/27/24 07/27/24 07/27/24 Range/Units 18:42 18:43 20:38 WBC (4.5-10.0) K/mm3 RBC (4.6-6.20) M/mm3 Hgb (14.0-18.0) g/dL Hct (42.0-52.0) % MCV (80-100) fl MCH (26-34) pg MCHC (32-36) g/dl RDW (11.5-14.5) % Plt Count (150-375) k/mm3 MPV (7.4-10.4) fl Immature Gran % (Auto) (0-0.5) % Neut % (Auto) (45.5-73.1) % Lymph % (Auto) (18.3-44.2) % Andrew % (Auto) (2.6-8.5) % Eos % (Auto) (0-4.4) % Baso % (Auto) (0.2-1.2) % Lymph # (Auto) (0.9-3.2) K/mm3 Andrew # (Auto) (0.1-0.6) K/mm3 Eos # (Auto) (0-0.3) K/mm3 Baso # (Auto) (0.0-0.1) K/mm3 Abs Immat Gran (auto) (0.00-0.031) K/mm3 Absolute Neuts (auto) (1.3-6.7) K/mm3 Absolute Nucleated RBC (0.0-0.012) K/mm3 Nucleated RBC % (0.0-0.2) % Sodium (137-145) mmol/L Potassium (3.4-5.0) mmol/L Chloride (98-107) mmol/L Carbon Dioxide (22-30) mmol/L Anion Gap (4-12) mmol/L BUN (9-20) mg/dL Creatinine (0.7-1.3) mg/dL Estim Creat Clear Calc Estimated GFR (59 - ) Glucose (65-110) mg/dL Calcium (8.4-10.2) mg/dL Total Bilirubin (0.2-1.3) mg/dL AST (17-59) U/L ALT (6-50) U/L Alkaline Phosphatase (38-126) U/L Total Protein (6.3-8.2) g/dL Albumin (3.5-5.1) g/dL TSH (Reflex) 6.430 H (0.465-4.68) uIU/mL Free T4 (0.78-2.19) ng/dL Total T3 (0.97-1.69) NG/ML Urine Color Yellow (Yellow) Urine Appearance Clear (Clear) Urine pH 5.5 (5.0-9.0) Ur Specific [place] 1.021 (1.001-1.035) Urine Protein Trace (Negative) mg/dL Urine Glucose (UA) Negative (Negative) mg/dL Urine Ketones Negative (Negative) mg/dL Ur Blood (Man) Negative (Negative) Urine Nitrate Negative (Negative) Urine Bilirubin Negative (Negative) Urine Urobilinogen 0.2 (<2.0) mg/dL Leukocyte Esterase Rfl Negative (Negative) SANG/UL Urine RBC 0-2 (0-2) /hpf Urine WBC 0-5 (0-3) /hpf Ur Squamous Epith Cells None seen (Few) /hpf Urine Bacteria None seen /hpf Urine Casts 0-2 Urine Opiates Screen Negative (Negative) Urine Methadone Screen Negative (Negative) Ur Barbiturates Screen Negative (Negative) Ur Phencyclidine Scrn Negative (Negative) Ur Amphetamine Screen Negative (Negative) U Benzodiazepines Scrn Positive A (Negative) Urine Cocaine Screen Negative (Negative) U Cannabinoids Screen Negative (Negative) Ethyl Alcohol (<10) mg/dL Influenza A (RT-PCR) (Negative) Influenza B (RT-PCR) (Negative) RSV (RT-PCR) (Negative) SARS-CoV-2 RNA (RT-PCR) (Negative) 07/27/24 07/28/24 Range/Units 20:39 01:43 WBC 5.5 (4.5-10.0) K/mm3 RBC 4.19 L (4.6-6.20) M/mm3 Hgb 12.3 L (14.0-18.0) g/dL Hct 37.3 L (42.0-52.0) % MCV 89.0 (80-100) fl MCH 29.4 (26-34) pg MCHC 33.0 (32-36) g/dl RDW 13.1 (11.5-14.5) % Plt Count 222 (150-375) k/mm3 MPV 10.0 (7.4-10.4) fl Immature Gran % (Auto) 0.2 (0-0.5) % Neut % (Auto) 52.9 (45.5-73.1) % Lymph % (Auto) 28.3 (18.3-44.2) % Andrew % (Auto) 13.9 H (2.6-8.5) % Eos % (Auto) 4.0 (0-4.4) % Baso % (Auto) 0.7 (0.2-1.2) % Lymph # (Auto) 1.55 (0.9-3.2) K/mm3 Andrew # (Auto) 0.8 H (0.1-0.6) K/mm3 Eos # (Auto) 0.2 (0-0.3) K/mm3 Baso # (Auto) 0.0 (0.0-0.1) K/mm3 Abs Immat Gran (auto) 0.01 (0.00-0.031) K/mm3 Absolute Neuts (auto) 2.9 (1.3-6.7) K/mm3 Absolute Nucleated RBC 0.000 (0.0-0.012) K/mm3 Nucleated RBC % 0.0 (0.0-0.2) % Sodium 140 (137-145) mmol/L Potassium 4.3 (3.4-5.0) mmol/L Chloride 102 (98-107) mmol/L Carbon Dioxide 26 (22-30) mmol/L Anion Gap 12 (4-12) mmol/L BUN 34 H (9-20) mg/dL Creatinine 1.62 H (0.7-1.3) mg/dL Estim Creat Clear Calc Not Reportable Estimated GFR 41 L (59 - ) Glucose 99 (65-110) mg/dL Calcium 9.4 (8.4-10.2) mg/dL Total Bilirubin 0.6 (0.2-1.3) mg/dL AST 55 (17-59) U/L ALT 41 (6-50) U/L Alkaline Phosphatase 82 (38-126) U/L Total Protein 8.0 (6.3-8.2) g/dL Albumin 4.3 (3.5-5.1) g/dL TSH (Reflex) (0.465-4.68) uIU/mL Free T4 1.44 (0.78-2.19) ng/dL Total T3 1.15 (0.97-1.69) NG/ML Urine Color (Yellow) Urine Appearance (Clear) Urine pH (5.0-9.0) Ur Specific [place] (1.001-1.035) Urine Protein (Negative) mg/dL Urine Glucose (UA) (Negative) mg/dL Urine Ketones (Negative) mg/dL Ur Blood (Man) (Negative) Urine Nitrate (Negative) Urine Bilirubin (Negative) Urine Urobilinogen (<2.0) mg/dL Leukocyte Esterase Rfl (Negative) SANG/UL Urine RBC (0-2) /hpf Urine WBC (0-3) /hpf Ur Squamous Epith Cells (Few) /hpf Urine Bacteria /hpf Urine Casts Urine Opiates Screen (Negative) Urine Methadone Screen (Negative) Ur Barbiturates Screen (Negative) Ur Phencyclidine Scrn (Negative) Ur Amphetamine Screen (Negative) U Benzodiazepines Scrn (Negative) Urine Cocaine Screen (Negative) U Cannabinoids Screen (Negative) Ethyl Alcohol < 10 (<10) mg/dL Influenza A (RT-PCR) Negative (Negative) Influenza B (RT-PCR) Negative (Negative) RSV (RT-PCR) Negative (Negative) SARS-CoV-2 RNA (RT-PCR) Negative (Negative) <Shereen Swain, FULLER BRUSH MAN - Last Filed: 07/28/24 03:39> Lab Results 07/27/24 07/27/24 07/27/24 Range/Units 18:42 18:43 20:38 WBC (4.5-10.0) K/mm3 RBC (4.6-6.20) M/mm3 Hgb (14.0-18.0) g/dL Hct (42.0-52.0) % MCV (80-100) fl MCH (26-34) pg MCHC (32-36) g/dl RDW (11.5-14.5) % Plt Count (150-375) k/mm3 MPV (7.4-10.4) fl Immature Gran % (Auto) (0-0.5) % Neut % (Auto) (45.5-73.1) % Lymph % (Auto) (18.3-44.2) % Andrew % (Auto) (2.6-8.5) % Eos % (Auto) (0-4.4) % Baso % (Auto) (0.2-1.2) % Lymph # (Auto) (0.9-3.2) K/mm3 Andrew # (Auto) (0.1-0.6) K/mm3 Eos # (Auto) (0-0.3) K/mm3 Baso # (Auto) (0.0-0.1) K/mm3 Abs Immat Gran (auto) (0.00-0.031) K/mm3 Absolute Neuts (auto) (1.3-6.7) K/mm3 Absolute Nucleated RBC (0.0-0.012) K/mm3 Nucleated RBC % (0.0-0.2) % Sodium (137-145) mmol/L Potassium (3.4-5.0) mmol/L Chloride (98-107) mmol/L Carbon Dioxide (22-30) mmol/L Anion Gap (4-12) mmol/L BUN (9-20) mg/dL Creatinine (0.7-1.3) mg/dL Estim Creat Clear Calc Estimated GFR (59 - ) Glucose (65-110) mg/dL Calcium (8.4-10.2) mg/dL Total Bilirubin (0.2-1.3) mg/dL AST (17-59) U/L ALT (6-50) U/L Alkaline Phosphatase (38-126) U/L Total Protein (6.3-8.2) g/dL Albumin (3.5-5.1) g/dL TSH (Reflex) 6.430 H (0.465-4.68) uIU/mL Free T4 (0.78-2.19) ng/dL Total T3 (0.97-1.69) NG/ML Urine Color Yellow (Yellow) Urine Appearance Clear (Clear) Urine pH 5.5 (5.0-9.0) Ur Specific [place] 1.021 (1.001-1.035) Urine Protein Trace (Negative) mg/dL Urine Glucose (UA) Negative (Negative) mg/dL Urine Ketones Negative (Negative) mg/dL Ur Blood (Man) Negative (Negative) Urine Nitrate Negative (Negative) Urine Bilirubin Negative (Negative) Urine Urobilinogen 0.2 (<2.0) mg/dL Leukocyte Esterase Rfl Negative (Negative) SANG/UL Urine RBC 0-2 (0-2) /hpf Urine WBC 0-5 (0-3) /hpf Ur Squamous Epith Cells None seen (Few) /hpf Urine Bacteria None seen /hpf Urine Casts 0-2 Urine Opiates Screen Negative (Negative) Urine Methadone Screen Negative (Negative) Ur Barbiturates Screen Negative (Negative) Ur Phencyclidine Scrn Negative (Negative) Ur Amphetamine Screen Negative (Negative) U Benzodiazepines Scrn Positive A (Negative) Urine Cocaine Screen Negative (Negative) U Cannabinoids Screen Negative (Negative) Ethyl Alcohol (<10) mg/dL Influenza A (RT-PCR) (Negative) Influenza B (RT-PCR) (Negative) RSV (RT-PCR) (Negative) SARS-CoV-2 RNA (RT-PCR) (Negative) 07/27/24 07/28/24 Range/Units 20:39 01:43 WBC 5.5 (4.5-10.0) K/mm3 RBC 4.19 L (4.6-6.20) M/mm3 Hgb 12.3 L (14.0-18.0) g/dL Hct 37.3 L (42.0-52.0) % MCV 89.0 (80-100) fl MCH 29.4 (26-34) pg MCHC 33.0 (32-36) g/dl RDW 13.1 (11.5-14.5) % Plt Count 222 (150-375) k/mm3 MPV 10.0 (7.4-10.4) fl Immature Gran % (Auto) 0.2 (0-0.5) % Neut % (Auto) 52.9 (45.5-73.1) % Lymph % (Auto) 28.3 (18.3-44.2) % Andrew % (Auto) 13.9 H (2.6-8.5) % Eos % (Auto) 4.0 (0-4.4) % Baso % (Auto) 0.7 (0.2-1.2) % Lymph # (Auto) 1.55 (0.9-3.2) K/mm3 Andrew # (Auto) 0.8 H (0.1-0.6) K/mm3 Eos # (Auto) 0.2 (0-0.3) K/mm3 Baso # (Auto) 0.0 (0.0-0.1) K/mm3 Abs Immat Gran (auto) 0.01 (0.00-0.031) K/mm3 Absolute Neuts (auto) 2.9 (1.3-6.7) K/mm3 Absolute Nucleated RBC 0.000 (0.0-0.012) K/mm3 Nucleated RBC % 0.0 (0.0-0.2) % Sodium 140 (137-145) mmol/L Potassium 4.3 (3.4-5.0) mmol/L Chloride 102 (98-107) mmol/L Carbon Dioxide 26 (22-30) mmol/L Anion Gap 12 (4-12) mmol/L BUN 34 H (9-20) mg/dL Creatinine 1.62 H (0.7-1.3) mg/dL Estim Creat Clear Calc Not Reportable Estimated GFR 41 L (59 - ) Glucose 99 (65-110) mg/dL Calcium 9.4 (8.4-10.2) mg/dL Total Bilirubin 0.6 (0.2-1.3) mg/dL AST 55 (17-59) U/L ALT 41 (6-50) U/L Alkaline Phosphatase 82 (38-126) U/L Total Protein 8.0 (6.3-8.2) g/dL Albumin 4.3 (3.5-5.1) g/dL TSH (Reflex) (0.465-4.68) uIU/mL Free T4 1.44 (0.78-2.19) ng/dL Total T3 1.15 (0.97-1.69) NG/ML Urine Color (Yellow) Urine Appearance (Clear) Urine pH (5.0-9.0) Ur Specific [place] (1.001-1.035) Urine Protein (Negative) mg/dL Urine Glucose (UA) (Negative) mg/dL Urine Ketones (Negative) mg/dL Ur Blood (Man) (Negative) Urine Nitrate (Negative) Urine Bilirubin (Negative) Urine Urobilinogen (<2.0) mg/dL Leukocyte Esterase Rfl (Negative) SANG/UL Urine RBC (0-2) /hpf Urine WBC (0-3) /hpf Ur Squamous Epith Cells (Few) /hpf Urine Bacteria /hpf Urine Casts Urine Opiates Screen (Negative) Urine Methadone Screen (Negative) Ur Barbiturates Screen (Negative) Ur Phencyclidine Scrn (Negative) Ur Amphetamine Screen (Negative) U Benzodiazepines Scrn (Negative) Urine Cocaine Screen (Negative) U Cannabinoids Screen (Negative) Ethyl Alcohol < 10 (<10) mg/dL Influenza A (RT-PCR) Negative (Negative) Influenza B (RT-PCR) Negative (Negative) RSV (RT-PCR) Negative (Negative) SARS-CoV-2 RNA (RT-PCR) Negative (Negative) <Rosalio Riggins MD - Last Filed: 07/28/24 06:50> Discharge Plan Discharge Clinical Impression: Agitation <Shereen Swain APRN - Last Filed: 07/28/24 03:39> Patient Disposition: Psychiatric Hosp <Shereen Swain APRN - Last Filed: 07/28/24 03:39> Condition: Stable <Shereen Swain APRN - Last Filed: 07/28/24 03:39> Patient Language: Swazi <Shereen Swain APRN - Last Filed: 07/28/24 03:39> Follow-up/Referrals: Tracey,Emily Doan APRN [Primary Care Provider] - <hSereen Swain APRN - Last Filed: 07/28/24 03:39>
[2024-07-27 20:36] LABS: Barbiturate Screen Urine Negative (Negative); Benzodiazepines Screen Urine Positive (Negative)
[2024-07-27 20:40] LABS: Amphetamine Screen Urine Negative (Negative); Cannabinoid Screen Urine Negative (Negative); Cocaine Screen Urine Negative (Negative); Methadone Screen Urine Negative (Negative); Opiate Screen Urine Negative (Negative); Phencyclidine Screen Urine Negative (Negative)
[2024-07-27 20:45] LABS: Basophils Percent Auto 0.7 % (0.2-1.2); Eosinophils Absolute Auto 0.2 K/mm3 (0-0.3); Hematocrit 37.3 % (42.0-52.0); Hemoglobin 12.3 g/dL (14.0-18.0); Immature Granulocyte Absolute 0.01 K/mm3 (0.00-0.031); Immature Granulocyte Percent A 0.2 % (0-0.5); Lymphocytes Absolute Auto 1.55 K/mm3 (0.9-3.2); Lymphocytes Percent Auto 28.3 % (18.3-44.2); Mean Corpuscular Hemoglobin 29.4 pg (26-34); Monocytes Absolute Auto 0.8 K/mm3 (0.1-0.6); Monocytes Percent Auto 13.9 % (2.6-8.5); Neutrophils Absolute Auto 2.9 K/mm3 (1.3-6.7); Neutrophils Percent Auto 52.9 % (45.5-73.1); Platelet Count Result 222 k/mm3 (150-375); Red Blood Count 4.19 M/mm3 (4.6-6.20); Red Cell Distribution Width 13.1 % (11.5-14.5); White Blood Count 5.5 K/mm3 (4.5-10.0)
[2024-07-27 20:52] LABS: Ethanol < 10 mg/dL (<10)
[2024-07-27] MEDS: OLANZapine 10 MG INJ VIAL 5 MG IM ×2 (21:03→22:56)
--- OUTSIDE RECORDS SUMMARY | 2024-07-27 21:08 | XMS_ITS | Referral Summary ---
Author Organization [facility] Address [address] [place] [id number] Care Team Providers Care Dress Designer Name Role Phone Emily Webb NP Primary [...] file Insurance [place] [id number] Care Teams Dress Designer Relationship Specialty Start Date End Date Emily Webb NP [address] [place] [address] PCP - General Nurse Practitioner 11/18/23
--- OUTSIDE RECORDS SUMMARY | 2024-07-27 21:08 | XMS_ITS | Clinical Summary ---
Author Organization [facility] Address [address] [place] [id number] Care Team Providers Care Supervisor Cytology Name Role Phone Emily Webb NP Primary [...] file Insurance [place] [id number] Care Teams Supervisor Cytology Relationship Specialty Start Date End Date Emily Webb NP [address] [place] [address] PCP - General Nurse Practitioner 11/18/23
--- OUTSIDE RECORDS SUMMARY | 2024-07-27 21:08 | XMS_ITS | CONTINUITY OF CARE DOCUMENT ---
Author Name codey alegre Address Unknown Organization [facility] Address [address] [address] [facility] [address] [place] [address] Phone [phone] Care Team Providers Care Janitorial Services Supervisor Name Role Phone Alo GARCIA, Amrit Unavailable [phone] Amrit Prajapati MD Unavailable [phone] INSURANCE PROVIDERS Payer name Policy type / Coverage type [place] [employer] republic[employer] ID [employer] GRP MEDICARE ADVANTAGE PLAN (PPO) Medicare [id number]
--- OUTSIDE RECORDS SUMMARY | 2024-07-27 21:08 | XMS_ITS | Patient Health Record ---
Author Organization [facility] Vince crowe Billing Info Address [address] [place] [id number] Care Team Providers Care Quality Review Trainer Name Role Phone YOMAIRA Echavarria Unavailable [phone] Allergies Allergen (clinical drug ingredient) Drug/Non Drug [...] Problem Status W/U Status Risk Notes Problem 50930512 Unspecified hypothyroidism (244.9) Active confirmed Migra odette-Pro [facility]List-[facility]07/28/19 13 Problem [id number] Pure hypercholesterolemia (272.0) Active confirmed Migrated-Pro blemList-344 [facility]07/28/19 13 Problem [id number] Other and unspec ified hyperlipidemia (272.4) Active confirmed Migra odette-Pro blemList-[facility]07/28/19 13 Problem [id number] Unspecified esse ntial hypertension (401.9) Active confirmed Migrate d-Pro blemList-[facility]07/28/19 13 Problem [id number] Encounter for long-term (current) use of other medications (V58.69) Active confirmed Migrate d-Pro blemList-344 [facility]07/28/19 13 Plan Of Treatment No Information Insurance Providers Payer Name Payer Address Payer Phone Subscriber Number Group Number Insured Name Patient Relationship to Insured Coverage Start Date Coverage End Date MEDICARE [place] PART B [address] [facility] [place], [place] [id number] [phone] [id number] Sonja Jose Armando Self - patient is the insured 7 0 [facility] CHOICE PLUS HSA [address] [place], [place] [phone] [id number] Jose Armando Casillas Self - patient is the insured 3 3 Medical (General) History Medical History History ICD Code high cholesterol hypertension Surgical History Surgery Date(Month/Year) hernia repair 1985 colonoscopy 2004
[2024-07-27 21:19] LABS: Influenza A QL RT-PCR Negative (Negative); Influenza B QL RT-PCR Negative (Negative); RSV RNA, RT-PCR Negative (Negative); SARS-CoV-2 RNA PCR Negative (Negative)
[2024-07-27 21:20] LABS: Alanine Aminotransferase 41 U/L (6-50); Albumin Level 4.3 g/dL (3.5-5.1); Alkaline Phosphatase 82 U/L (38-126); Anion Gap 12 mmol/L (4-12); Aspartate Amino Transferase 55 U/L (17-59); Bilirubin,Total 0.6 mg/dL (0.2-1.3); Blood Urea Nitrogen 34 mg/dL (9-20); Calcium 9.4 mg/dL (8.4-10.2); Carbon Dioxide 26 mmol/L (22-30); Chloride 102 mmol/L (98-107); Estimated Glomerular Filt Rate 41; Glucose 99 mg/dL (65-110); Potassium 4.3 mmol/L (3.4-5.0); Sodium 140 mmol/L (137-145)
[2024-07-27] MEDS: WATER, STERILE FOR INJECTION 10 ML VIAL XX (22:56)
--- NOTE | 2024-07-27 23:00 | PC.NURSE ---
Pt agitated, removing clothing, urinating on stretcher, and being verbally aggressive towards staff. EDP MURTAZA Regan made aware. Additional order of Zyprexa placed - administered by this RN. Sitter at bedside.
--- NOTE | 2024-07-27 23:14 | PC.NURSE ---
Pt medically cleared by Wiliam Hightower, MURTAZA.
[2024-07-28] VITALS: BP 132/76; PULSE 70; RESP 18; O2SAT 100
[2024-07-28] MEDS: LORazepam INJ (*CRX) 2 MG/ML VIAL 1 MG IM (00:14)
--- NOTE | 2024-07-28 01:35 | PC.NURSE ---
[facility] needs involuntary cert form filled out and faxed to them at [phone]. Once faxed please reach out to [facility] at [phone].
--- NOTE | 2024-07-28 02:32 | PC.NURSE ---
Per Francisca at [facility] we do have all the paperwork that we need. Francisca updated that [facility] EMS arrival time is 0330.
[2024-07-28 02:35] LABS: Free T4 Free Thyroxine Reflex 1.44 ng/dL (0.78-2.19)
[2024-07-28 03:27] LABS: Total Triiodothyronine (T3) 1.15 NG/ML (0.97-1.69)
[2024-07-28] MEDS: OLANZapine 5 MG, WATER, STERILE FOR INJECTION 2.1 ML IM (07:38)
== END 2024-07-28 08:45 ==
PROVIDERS: Emergency Medicine; Emergency Provider Registered Nurse; PCP Nurse Practitioner
DX: R45.1 Restlessness and agitation (principal); W18.30XA Fall on same level, unspecified, initial encounter; I10 Essential (primary) hypertension; E78.5 Hyperlipidemia, unspecified; E03.9 Hypothyroidism, unspecified; F03.90 Unspecified dementia, unspecified severity, without behavioral disturbance, psychotic disturbance, mood disturbance, and anxiety; Z20.822 Contact with and (suspected) exposure to COVID-19
CPT/HCPCS: 36415; 80053; 80307; 81001; 82077; 84439; 84443; 84480; 85025; 87637; 93005; 96372; 99285; J2060; J2359